=== PATIENT | male | born 1960 | race Caucasian/White ===

== ENCOUNTER 2016-03-31 11:43 | Observation (INO) | payer BC, OTHER ==
[2016-03-31] VITALS (8 sets, daily range): BP systolic 127–175; BP diastolic 70–89; PULSE 42–68; RESP 14–20; TEMP 97.6–98.4; O2SAT 96–99
[~2016-03-31] VITALS: Ht 177.8 cm; Wt 115.0 kg
[~2016-03-31 11:43] MED LIST: 1-ME1LIQ PO; ASPI81 PO; BENA40TA PO; COUM5TAB PO; GLIM1TAB PO; GLIM2TAB PO; HYDR10TA16 PO; METO50TA PO; SIMV40TA PO; WARF7.5 PO
--- NOTE | 2016-03-31 12:03 | PD ---
HPI Chief Complaint: Cardiac Complaint Time Seen by Provider: 12:03 Travel History International Travel<30 days: No Contact w/Intl Traveler<30days: No Traveled to known affect area: No History of Present Illness HPI 55-year-old male came to the emergency room with history of palpitations/ flutter on and off for past 2 weeks. The symptoms are associated with lightheadedness and feeling like he is going to pass out. He has been getting progressive shortness of breath. Some chest heaviness as well. No cough, fever. Patient had history of atrial fibrillation and had an ablation done 7 years ago. Since then he was symptom-free up until 2 weeks ago. Since this was not going away patient decided to come to the emergency room. Vital signs are stable otherwise. Patient seems anxious but not in any significant distress. PFSH Past Medical History Narrative Medical List of his past medical history as reviewed from the nursing note. Diminished Hearing: No Social History Alcohol Use: No Tobacco Use: Yes (1 PPD) Substance Use: No Allergies-Medications (Allergen,Severity, Reaction): Coded Allergies: No Known Allergies (Verified , 03/31/16) Comments No known drug allergies. Reported Meds & Prescriptions Reported Meds & Active Scripts Active Reported Vitamin D3 (Cholecalciferol) 5,000 Unit Tab 5,000 Units PO BID Fish Oil 1200 mg ([place]-3 Fatty Acids) 1 Cap Cap 1,200 Mg PO BID Ventolin Hfa 18 GM Inh (Albuterol Sulfate) 90 Mcg/Act Aer 2 Puff INH Q6H PRN Symbicort Inh (Budesonide/Formoterol Fumarate) 80-4.5 Mcg/Act Aero 2 Puff INH Q12HR Singulair (Montelukast Sodium) 10 Mg Tab 10 Mg PO HS Atorvastatin (Atorvastatin Calcium) 40 Mg Tab 40 Mg PO HS Janumet (Sitagliptin-Metformin) 50-1,000 Mg Tab 1 Tab PO BID Aspirin 325 Mg Tab 325 Mg PO DAILY Metoprolol Tartrate 25 Mg Tab 25 Mg PO BID Amlodipine-Benazepril 10-40 Mg Cap 1 Cap PO DAILY Narrative Medication List of his home medications reviewed from the nursing note. Review of Systems Except as stated in HPI: all other systems reviewed are Neg Physical Exam Narrative GENERAL: Awake, alert, obese, anxious SKIN: Warm and dry. HEAD: Atraumatic. Normocephalic. EYES: Pupils equal and round. No scleral icterus. No injection or drainage. ENT: No nasal bleeding or discharge. Mucous membranes pink and moist. NECK: Trachea midline. No JVD. CARDIOVASCULAR: Regular rate and rhythm. No murmur appreciated. RESPIRATORY: No accessory muscle use. Clear to auscultation. Breath sounds equal bilaterally. GASTROINTESTINAL: Abdomen soft, non-tender, nondistended. Hepatic and splenic margins not palpable. MUSCULOSKELETAL: No obvious deformities. No clubbing. No cyanosis. No edema. NEUROLOGICAL: Awake and alert. No obvious cranial nerve deficits. Motor grossly within normal limits. Normal speech. PSYCHIATRIC: Appropriate mood and affect; insight and judgment normal. Data Data Last Documented VS Vital Signs Date Time Temp Pulse Resp B/P Pulse Ox O2 Delivery O2 Flow Rate FiO2 03/31/16 13:09 59 16 175/72 97 Room Air 03/31/16 12:51 2 03/31/16 11:45 98.4 Orders Electrocardiogram (03/31/16 ) Basic Metabolic Panel (Bmp) (03/31/16 12:15) B-Type Natriuretic Peptide (03/31/16 12:15) Ckmb (Isoenzyme) Profile (03/31/16 12:15) Complete Blood Count With Diff (03/31/16 12:15) Magnesium (Mg) (03/31/16 12:15) Prothrombin Time / Inr (Pt) (03/31/16 12:15) Act Partial Throm Time (Ptt) (03/31/16 12:15) Troponin I (03/31/16 12:15) Chest, Single Ap (03/31/16 12:15) Ecg Monitoring (03/31/16 12:15) Bilateral Bp Monitoring (03/31/16 12:15) Iv Access Insert/Monitor (03/31/16 12:15) Oximetry (03/31/16 12:15) Oxygen Administration (03/31/16 12:15) Sodium Chloride 0.9% Flush (Ns Flush) (03/31/16 12:15) CKMB (03/31/16 12:27) CKMB% (03/31/16 12:27) Hydralazine Inj (Apresoline Inj) (03/31/16 13:45) Admit Order (Ed Use Only) (03/31/16 14:16) Labs Laboratory Tests Test 03/31/16 12:27 White Blood Count 9.6 TH/MM3 Red Blood Count 5.01 MIL/MM3 Hemoglobin 14.1 GM/DL Hematocrit 42.2 % Mean Corpuscular Volume 84.2 FL Mean Corpuscular Hemoglobin 28.2 PG Mean Corpuscular Hemoglobin 33.5 % Concent Red Cell Distribution Width 13.8 % Platelet Count 261 TH/MM3 Mean Platelet Volume 9.6 FL Neutrophils (%) (Auto) 56.6 % Lymphocytes (%) (Auto) 32.6 % Monocytes (%) (Auto) 8.4 % Eosinophils (%) (Auto) 1.4 % Basophils (%) (Auto) 1.0 % Neutrophils # (Auto) 5.4 TH/MM3 Lymphocytes # (Auto) 3.1 TH/MM3 Monocytes # (Auto) 0.8 TH/MM3 Eosinophils # (Auto) 0.1 TH/MM3 Basophils # (Auto) 0.1 TH/MM3 CBC Comment DIFF FINAL Differential Comment Prothrombin Time 10.7 SEC Prothromb Time International 1.0 RATIO Ratio Activated Partial 29.9 SEC Thromboplast Time Sodium Level 137 MEQ/L Potassium Level 4.6 MEQ/L Chloride Level 103 MEQ/L Carbon Dioxide Level 26.8 MEQ/L Anion Gap 7 MEQ/L Blood Urea Nitrogen 11 MG/DL Creatinine 0.82 MG/DL Estimat Glomerular Filtration 97 ML/MIN Rate Random Glucose 125 MG/DL Calcium Level 9.1 MG/DL Magnesium Level 1.9 MG/DL Total Creatine Kinase 163 U/L Creatine Kinase MB 0.6 NG/ML Troponin I LESS THAN 0.02 NG/ML B-Type Natriuretic Peptide 24 PG/ML MDM Medical Decision Making Medical Screen Exam Complete: Yes Emergency Medical Condition: Yes Medical Record Reviewed: Yes Interpretation(s) Twelve-lead EKG was reviewed by me. Normal sinus rhythm, left axis deviation, right bundle branch block. Heart rate of 62 bpm. Differential Diagnosis Paroxysmal atrial fibrillation/flutter, paroxysmal ventricular tachycardia, congestive heart failure Narrative Course 1:28 PM awaiting for the blood test results. Patient will require admission. 2:07 PM all the blood test results of come back and within normal limit. Awaiting for the hospitalist to call back for admission. Procedures EKG Prior to Arrival: Yes Diagnosis Primary Impression: Palpitations Additional Impressions: Chest pain Qualified Code: R07.9 - Chest pain, unspecified type Shortness of breath Admitting Information Admitting Physician Requests: Observation Nahed Alston MD Mar 31, 2016 12:03
[2016-03-31] MEDS ORDERED: JANU50TA8 PO (12:12)
[2016-03-31] MEDS ORDERED: METO25TA3 PO (12:12)
[2016-03-31] MEDS ORDERED: MONT10TA2 PO (12:12)
[2016-03-31] MEDS ORDERED: SYMB80AE INH (12:12)
[2016-03-31] MEDS ORDERED: OMEG5CAP PO (12:12)
[2016-03-31] MEDS ORDERED: ASPI325T PO (12:12)
[2016-03-31] MEDS ORDERED: CHOL50008 PO (12:12)
[2016-03-31] MEDS ORDERED: AMLO10CA3 PO (12:12)
[2016-03-31] MEDS ORDERED: VENTAER INH (12:12)
[2016-03-31] MEDS ORDERED: ATOR40TA16 PO (12:12)
[2016-03-31] MEDS ORDERED: SODIUM CHLORIDE 0.9% FLUSH 5 ML FLUSH IVF PRN (12:15)
[2016-03-31 13:05] LABS: AUTOMATED NEUTROPHIL # 5.4 TH/MM3 (1.8-7.7); BASOPHIL # 0.1 TH/MM3 (0-0.2); EOSINOPHIL # 0.1 TH/MM3 (0-0.4); EOSINOPHIL % 1.4 % (0.0-4.0); HEMATOCRIT 42.2 % (39.0-51.0); HEMO FLAGS DIFF FINAL; LYMPH % 32.6 % (9.0-44.0); LYMPHOCYTE # 3.1 TH/MM3 (1.0-4.8); MEAN CELL VOLUME 84.2 FL (80.0-100.0); MEAN CORPUSCULAR HEMOGLOBIN 28.2 PG (27.0-34.0); MEAN CORPUSCULAR HGB CONC 33.5 % (32.0-36.0); MONO % 8.4 % (0.0-8.0); NEUT % 56.6 % (16.0-70.0); PLATELET COUNT 261 TH/MM3 (150-450); RED BLOOD COUNT 5.01 MIL/MM3 (4.50-5.90); RED CELL DISTRIBUTION WIDTH 13.8 % (11.6-17.2); WHITE BLOOD COUNT 9.6 TH/MM3 (4.0-11.0)
[2016-03-31 13:09] LABS: PROTHROMBIN TIME - PATIENT 10.7 SEC (9.8-11.6)
[2016-03-31 13:13] LABS: APTT (PATIENT) 29.9 SEC (24.3-30.1)
[2016-03-31 13:29] LABS: ANION GAP 7 MEQ/L (5-15); BICARBONATE 26.8 MEQ/L (21.0-32.0); BLOOD UREA NITROGEN 11 MG/DL (7-18); CHLORIDE 103 MEQ/L (98-107); CREATINE KINASE 163 U/L (39-308); GLOMERULAR FILTRATION RATE 97 ML/MIN (>89); MAGNESIUM 1.9 MG/DL (1.5-2.5); SODIUM (NA) 137 MEQ/L (136-145)
[2016-03-31 13:30] LABS: POTASSIUM 4.6 MEQ/L (3.5-5.1)
[2016-03-31 13:43] LABS: CKMB 0.6 NG/ML (0.5-3.6)
[2016-03-31] MEDS ORDERED: hydrALAZINE HCL 20 MG/ML VIAL IV PUSH ONE (13:45)
--- NOTE | 2016-03-31 13:59 | RADRPT ---
EXAM DATE/TIME: 03/31/2016 12:38 [facility] COMPARISON: No previous studies available for comparison. INDICATIONS : Shortness of breath. MEDICAL HISTORY : None. SURGICAL HISTORY : None. ENCOUNTER: Initial ACUITY: 1 day PAIN SCORE: 0/10 LOCATION: Bilateral chest FINDINGS: A single view of the chest demonstrates the lungs to be symmetrically aerated without evidence of mas s, infiltrate or effusion. The cardiomediastinal contours are unremarkable. Osseous structures are intact. CONCLUSION: No acute disease. Arian Anand MD on March 31, 2016 at 13:57 Board Certified Radiologist. This report was verified electronically.
[2016-03-31] MEDS ORDERED: ALBUTEROL SULFATE 90 MCG/ACT HFA 8 GM INHALER INH PRN (14:45)
[2016-03-31] MEDS ORDERED: SODIUM CHLORIDE 0.9% FLUSH 5 ML FLUSH FLUSH PRN (14:45)
--- NOTE | 2016-03-31 16:19 | HHI.HP ---
[facility] Primary Care Physician Haroldo Johnson Admission Diagnosis palpitations, chest pain, shortness of breath Diagnoses: Chief Complaint: Heart palpitations, chest tightness and shortness of breath. Travel History International Travel<30 Days: No Contact w/Intl Traveler <30 Da: No Traveled to Known Affected Are: No History of Present Illness 55-year-old male with a medical history significant for atrial fibrillation status post ablation 6 years ago, hypertension, hyperlipidemia, diabetes, COPD who presented to the emergency room with complaint of intermittent heart palpitations associated with shortness of breath, chest tightness and lightheadedness. The patient reports that he is experiencing the same symptoms he had prior to his ablation. He reports he started to experience the symptoms over the past couple of weeks and they have becoming more frequent on the daily basis which prompted the emergency room visit. He reports that he follows regularly with his [employer] Dr. Malagon. EKG in the ER show sinus rhythm. Hospitalist service contacted for admission and further workup. Upon my evaluation the patient reports that he is still experiencing the symptoms, monitor shows some PVCs but rate is normal. Review of Systems Constitutional: DENIES: Fever, Chills Eyes: DENIES: Blurred vision Ears, nose, mouth, throat: DENIES: Oral lesions, Throat pain Respiratory: COMPLAINS OF: Shortness of breath, DENIES: Cough Cardiovascular: COMPLAINS OF: Chest pain, Palpitations, DENIES: Syncope, Lower Extremity Edema Gastrointestinal: DENIES: Nausea, Vomiting Genitourinary: DENIES: Dysuria Musculoskeletal: DENIES: Joint Swelling Integumentary: DENIES: Rash Neurologic: DENIES: Headache Psychiatric: DENIES: Mood changes Past Family Social History Past Medical History atrial fibrillation status post ablation 6 years ago, hypertension, hyperlipidemia, diabetes, COPD Past Surgical History Left knee surgery Sinus surgery Reported Medications Reported Meds & Active Scripts Active Reported Vitamin D3 (Cholecalciferol) 5,000 Unit Tab 5,000 Units PO BID Fish Oil 1200 mg ([place]-3 Fatty Acids) 1 Cap Cap 1,200 Mg PO BID Ventolin Hfa 18 GM Inh (Albuterol Sulfate) 90 Mcg/Act Aer 2 Puff INH Q6H PRN Symbicort Inh (Budesonide/Formoterol Fumarate) 80-4.5 Mcg/Act Aero 2 Puff INH Q12HR Singulair (Montelukast Sodium) 10 Mg Tab 10 Mg PO HS Atorvastatin (Atorvastatin Calcium) 40 Mg Tab 40 Mg PO HS Janumet (Sitagliptin-Metformin) 50-1,000 Mg Tab 1 Tab PO BID Aspirin 325 Mg Tab 325 Mg PO DAILY Metoprolol Tartrate 25 Mg Tab 25 Mg PO BID Amlodipine-Benazepril 10-40 Mg Cap 1 Cap PO DAILY Allergies: Coded Allergies: No Known Allergies (Verified , 03/31/16) Family History Both parents with heart disease and strokes. Social History Patient quit smoking cigarettes 6 years ago. Prior to that he smoked 2 pack per day for about 35 years. Rarely uses alcohol, denies illicit drugs. Physical Exam Vital Signs Vital Signs Date Time Temp Pulse Resp B/P Pulse Ox O2 Delivery O2 Flow Rate FiO2 03/31/16 14:27 61 16 139/80 99 Nasal Cannula 2 03/31/16 13:09 59 16 175/72 97 Room Air 03/31/16 12:51 97 Nasal Cannula 2 03/31/16 12:12 63 16 161/77 97 Nasal Cannula 2 03/31/16 11:45 98.4 63 14 156/89 98 Room Air Physical Exam GENERAL: This is a well-nourished, well-developed patient, in no apparent distress. SKIN: No rashes, ecchymoses or lesions. Cool and dry. HEAD: Atraumatic. Normocephalic. No temporal or scalp tenderness. EYES: Pupils equal round and reactive. Extraocular motions intact. No scleral icterus. No injection or drainage. ENT: Nose without bleeding, purulent drainage or septal hematoma. Throat without erythema, tonsillar hypertrophy or exudate. Uvula midline. Airway patent. NECK: Trachea midline. No JVD or lymphadenopathy. Supple, nontender, no meningeal signs. CARDIOVASCULAR: Regular rate and rhythm without murmurs, gallops, or rubs. RESPIRATORY: Clear to auscultation. Breath sounds equal bilaterally. No wheezes , rales, or rhonchi. GASTROINTESTINAL: Abdomen soft, non-tender, nondistended. No hepato-splenomegaly , or palpable masses. No guarding. MUSCULOSKELETAL: Extremities without clubbing, cyanosis, or edema. No joint tenderness, effusion, or edema noted. No calf tenderness. Negative Homans sign bilaterally. NEUROLOGICAL: Awake and alert. Cranial nerves II through XII intact. Motor and sensory grossly within normal limits. Five out of 5 muscle strength in all muscle groups. Normal speech. Laboratory Laboratory Tests Test 03/31/16 12:27 White Blood Count 9.6 Red Blood Count 5.01 Hemoglobin 14.1 Hematocrit 42.2 Mean Corpuscular Volume 84.2 Mean Corpuscular Hemoglobin 28.2 Mean Corpuscular Hemoglobin 33.5 Concent Red Cell Distribution Width 13.8 Platelet Count 261 Mean Platelet Volume 9.6 Neutrophils (%) (Auto) 56.6 Lymphocytes (%) (Auto) 32.6 Monocytes (%) (Auto) 8.4 Eosinophils (%) (Auto) 1.4 Basophils (%) (Auto) 1.0 Neutrophils # (Auto) 5.4 Lymphocytes # (Auto) 3.1 Monocytes # (Auto) 0.8 Eosinophils # (Auto) 0.1 Basophils # (Auto) 0.1 CBC Comment DIFF FINAL Differential Comment Prothrombin Time 10.7 Prothromb Time International 1.0 Ratio Activated Partial 29.9 Thromboplast Time Sodium Level 137 Potassium Level 4.6 Chloride Level 103 Carbon Dioxide Level 26.8 Anion Gap 7 Blood Urea Nitrogen 11 Creatinine 0.82 Estimat Glomerular Filtration 97 Rate Random Glucose 125 Calcium Level 9.1 Magnesium Level 1.9 Total Creatine Kinase 163 Creatine Kinase MB 0.6 Troponin I LESS THAN 0.02 B-Type Natriuretic Peptide 24 Result Diagram: 03/31/16 1227 03/31/16 1227 Imaging Last Impressions Chest X-Ray 03/31/16 1215 Signed Impressions: Service Date/Time: Thursday, March 31, 2016 12:38 - CONCLUSION: No acute disease. Arian Anand MD Assessment and Plan Problem List: (1) Palpitations ICD Code: R00.2 Status: Acute (2) Chest pain ICD Code: R07.9 Status: Acute (3) Shortness of breath ICD Code: R06.02 Status: Acute (4) Diabetes ICD Code: E11.9 Status: Acute (5) Hyperlipidemia ICD Code: E78.5 Status: Acute (6) Hypertension ICD Code: I10 Status: Acute Assessment and Plan 55-year-old male with: Palpitations associated chest pain, lightheadedness, and shortness of breath: The patient has a history of A. fib status post ablation. EKG shows a controlled rate and occasional PVCs are seen on the monitor. It is unclear if he is having episodes of paroxysmal A. fib. - Admitted for observation and continuous telemetry monitoring. Holter monitor. 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 Check TSH and mag. History of A. fib: Status post ablation as above. Rate control. - Continue metoprolol and aspirin Diabetes: Continue home dose Janumet Hyperlipidemia: Continue atorvastatin. COPD: Not in exacerbation. Continue Symbicort, albuterol and Montelukast. GI prophylaxis: Stool softener PRN constipation. DVT PPx: Heparin Discussed Condition With Dr. Alston. Problem Qualifiers (1) Chest pain: Qualified Code: R07.9 - Chest pain, unspecified type Vitaliy Cabezas MD Mar 31, 2016 16:19
[2016-03-31] MEDS: HEPARIN SODIUM - SQ 10,000 UNITS/ML VIAL SQ SCH (17:31)
[2016-03-31] MEDS: metFORMIN HCL 500 MG TAB PO SCH (18:10)
[2016-03-31 19:55] LABS: MAGNESIUM 1.8 MG/DL (1.5-2.5)
[2016-03-31 20:12] LABS: CREATINE KINASE 92 U/L (39-308)
[2016-03-31] MEDS: SODIUM CHLORIDE 0.9% FLUSH 5 ML FLUSH FLUSH SCH (20:55)
[2016-03-31] MEDS: BUDESONIDE-FORMOTEROL 80/4.5 MCG INHALER INH SCH (20:55)
[2016-03-31] MEDS: MONTELUKAST SODIUM 10 MG TAB PO SCH (20:56)
[2016-03-31] MEDS: METOPROLOL TARTRATE 25 MG TAB PO SCH (20:56)
[2016-03-31] MEDS: CHOLECALCIFEROL (VIT D3) 5000 UNIT CAP PO SCH (20:56)
[2016-03-31] MEDS ORDERED: NON-FORMULARY DRUG (Omega-3 Fatty Acids (Fish Oil 1200 mg) 1,200 MG) PO SCH (21:00)
[2016-03-31] MEDS ORDERED: ATORVASTATIN 40 MG TAB PO SCH (21:00)
[2016-04-01] VITALS (8 sets, daily range): BP systolic 110–140; BP diastolic 67–78; PULSE 62–82; RESP 18–20; TEMP 97.4–98.1; O2SAT 93–96
[2016-04-01 01:09] LABS: CREATINE KINASE 95 U/L (39-308)
[2016-04-01] MEDS: HEPARIN SODIUM - SQ 10,000 UNITS/ML VIAL SQ SCH ×2 (04:42→16:15)
[2016-04-01] MEDS ORDERED: ASPIRIN 325 MG TAB PO SCH (09:00)
[2016-04-01] MEDS ORDERED: LISINOPRIL 20 MG TAB PO SCH (09:00)
[2016-04-01] MEDS ORDERED: NON-FORMULARY DRUG (Amlodipine-Benazepril 1 CAP) PO SCH (09:00)
[2016-04-01] MEDS: BUDESONIDE-FORMOTEROL 80/4.5 MCG INHALER INH SCH (09:02)
[2016-04-01] MEDS: METOPROLOL TARTRATE 25 MG TAB PO SCH (09:03)
[2016-04-01] MEDS: metFORMIN HCL 500 MG TAB PO SCH ×2 (09:03→18:07)
[2016-04-01] MEDS: CHOLECALCIFEROL (VIT D3) 5000 UNIT CAP PO SCH (09:03)
[2016-04-01] MEDS: SODIUM CHLORIDE 0.9% FLUSH 5 ML FLUSH FLUSH SCH (09:04)
[2016-04-01] MEDS ORDERED: PNEUMOCOCCAL POLYVALENT INJ 25 MCG/0.5 ML SYR IM ONE (10:00)
[2016-04-01] MEDS ORDERED: INFLUENZA VIRUS VACCINE (QUADRIVALENT) 0.5 ML SYR IM ONE (10:00)
--- NOTE | 2016-04-01 10:43 | PD.PN.STU ---
Subjective Remarks Pt reports he still feels these momentary palpitations that last only a few seconds. He has been keeping track of them overnight. He describes a feeling of discomfort when these occur, they are unrelated to exertion. They seem to be happening a few times each hour, again lasting only a few seconds each time. He denies chest pain, increasing shortness of breath, or dizziness. Objective Vitals Vital Signs Date Time Temp Pulse Resp B/P Pulse Ox O2 Delivery O2 Flow Rate FiO2 04/01/16 07:41 97.4 72 18 140/72 95 04/01/16 04:24 97.9 68 20 110/67 96 04/01/16 01:02 62 04/01/16 00:30 98.1 68 20 133/73 94 03/31/16 19:58 97.7 68 20 143/76 97 03/31/16 18:28 66 03/31/16 17:33 42 03/31/16 16:00 97.6 61 18 127/70 96 03/31/16 14:27 61 16 139/80 99 Nasal Cannula 2 03/31/16 13:09 59 16 175/72 97 Room Air 03/31/16 12:51 97 Nasal Cannula 2 03/31/16 12:12 63 16 161/77 97 Nasal Cannula 2 03/31/16 11:45 98.4 63 14 156/89 98 Room Air Result Diagram: 03/31/16 1227 03/31/16 1227 Other Results Laboratory Tests Test 03/31/16 03/31/16 04/01/16 12:27 18:39 00:13 White Blood Count 9.6 TH/MM3 Red Blood Count 5.01 MIL/MM3 Hemoglobin 14.1 GM/DL Hematocrit 42.2 % Mean Corpuscular Volume 84.2 FL Mean Corpuscular Hemoglobin 28.2 PG Mean Corpuscular Hemoglobin 33.5 % Concent Red Cell Distribution Width 13.8 % Platelet Count 261 TH/MM3 Mean Platelet Volume 9.6 FL Neutrophils (%) (Auto) 56.6 % Lymphocytes (%) (Auto) 32.6 % Monocytes (%) (Auto) 8.4 % Eosinophils (%) (Auto) 1.4 % Basophils (%) (Auto) 1.0 % Neutrophils # (Auto) 5.4 TH/MM3 Lymphocytes # (Auto) 3.1 TH/MM3 Monocytes # (Auto) 0.8 TH/MM3 Eosinophils # (Auto) 0.1 TH/MM3 Basophils # (Auto) 0.1 TH/MM3 CBC Comment DIFF FINAL Differential Comment Prothrombin Time 10.7 SEC Prothromb Time International 1.0 RATIO Ratio Activated Partial 29.9 SEC Thromboplast Time Sodium Level 137 MEQ/L Potassium Level 4.6 MEQ/L Chloride Level 103 MEQ/L Carbon Dioxide Level 26.8 MEQ/L Anion Gap 7 MEQ/L Blood Urea Nitrogen 11 MG/DL Creatinine 0.82 MG/DL Estimat Glomerular Filtration 97 ML/MIN Rate Random Glucose 125 MG/DL Calcium Level 9.1 MG/DL Magnesium Level 1.9 MG/DL 1.8 MG/DL Total Creatine Kinase 163 U/L 92 U/L 95 U/L Creatine Kinase MB 0.6 NG/ML Troponin I LESS THAN 0.02 LESS THAN 0.02 LESS THAN 0.02 NG/ML NG/ML NG/ML B-Type Natriuretic Peptide 24 PG/ML Thyroid Stimulating Hormone 1.570 uIU/ML 3rd Gen Imaging Last 24 hours Impressions Chest X-Ray 03/31/16 1215 Signed Impressions: Service Date/Time: Thursday, March 31, 2016 12:38 - CONCLUSION: No acute disease. Arian Anand MD Objective Remarks GENERAL: Well-nourished, well-developed patient, sitting upright eating breakfast, appears comfortable, pleasant and conversant SKIN: Warm and dry. HEAD: Normocephalic. EYES: No scleral icterus. No injection or drainage. NECK: Supple, trachea midline. No JVD or lymphadenopathy. CARDIOVASCULAR: Regular rate and rhythm without murmurs, gallops, or rubs. RESPIRATORY: Breath sounds equal bilaterally. No accessory muscle use. GASTROINTESTINAL: Abdomen soft, non-tender, nondistended. EXTREMITIES: No cyanosis, or edema. NEUROLOGICAL: Awake, alert, and oriented x 3. Non-focal. Medications and IVs Administered Medications Medications (Trade) Dose Ordered Sig/Anjali Route PRN Reason Start Time Stop Time Status Last Admin Dose Admin Aspirin (Aspirin) 325 mg DAILY PO 04/01/16 09:00 04/01/16 09:03 Atorvastatin Calcium (Lipitor) 40 mg HS PO 03/31/16 21:00 03/31/16 20:55 Budesonide/ Formoterol Fumarate (Symbicort 80-4.5 Mcg Inh) 2 puff Q12HR INH 03/31/16 21:00 04/01/16 09:02 Cholecalciferol (Vitamin D3) 5,000 units BID PO 03/31/16 21:00 04/01/16 09:03 Montelukast Sodium (Singulair) 10 mg HS PO 03/31/16 21:00 03/31/16 20:56 IV Flush (NS Flush) 2 ml BID FLUSH 03/31/16 21:00 04/01/16 09:04 Heparin Sodium (Porcine) (Heparin Inj) 5,000 units Q12H SQ 03/31/16 16:15 04/01/16 04:42 Metoprolol Tartrate (Lopressor) 25 mg BID PO 03/31/16 21:00 04/01/16 09:03 Amlodipine Besylate (Norvasc) 10 mg DAILY PO 04/01/16 09:00 04/01/16 09:03 Lisinopril (Prinivil) 40 mg DAILY PO 04/01/16 09:00 04/01/16 09:03 Sitagliptin Phosphate (Januvia) 50 mg BIDPC PO 03/31/16 18:00 04/01/16 09:03 Metformin HCl (Glucophage) 1,000 mg BIDPC PO 03/31/16 18:00 04/01/16 09:03 A/P Assessment and Plan 55 yo M w/palpitations and a hx of AF, Diabetes, HTN, HLD, COPD - Atrial Fibrillation s/p ablation - EKG's in the ED have shown sinus rhythm, unclear if these brief episodes are atrial fibrillation or can be better explained by another etiology ( possibly PVC's) - Currently on holter monitor - Echo ordered - Cardiology consulted - Continue home regimen (metoprolol, amlodipine, lisinopril) - Diabetes - Continue home medications (metformin, januvia) - COPD - Continue symbicort Q12h - Influenza, pneumococcal vaccines administered - Hyperlipidemia - Continue atorvastatin - Ppx: Heparin 5,000 U Q12h Stephany Guerrero Apr 01, 2016 10:43
--- NOTE | 2016-04-01 14:18 | HHI.PR ---
Subjective Remarks Patient again is reporting multiple episodes of heart palpitations per hour with associated shortness of breath and lightheadedness. Telemetry reviewed, could not correlate his symptoms with the telemetry findings. There were a couple episodes of bradycardia in the mid 40s and mostly artifacts. I could not appreciate a tachyarrhythmia. Objective Vitals Vital Signs Date Time Temp Pulse Resp B/P Pulse Ox O2 Delivery O2 Flow Rate FiO2 04/01/16 11:19 97.8 69 18 113/67 95 04/01/16 11:00 67 04/01/16 07:41 97.4 72 18 140/72 95 04/01/16 04:24 97.9 68 20 110/67 96 04/01/16 01:02 62 04/01/16 00:30 98.1 68 20 133/73 94 03/31/16 19:58 97.7 68 20 143/76 97 03/31/16 18:28 66 03/31/16 17:33 42 03/31/16 16:00 97.6 61 18 127/70 96 03/31/16 14:27 61 16 139/80 99 Nasal Cannula 2 Result Diagram: 03/31/16 1227 03/31/16 1227 Imaging Last Impressions Chest X-Ray 03/31/16 1215 Signed Impressions: Service Date/Time: Thursday, March 31, 2016 12:38 - CONCLUSION: No acute disease. Arian Anand MD Objective Remarks GENERAL: This is a well-nourished, well-developed patient, in no apparent distress. CARDIOVASCULAR: Normal rate and regular rhythm without murmurs, gallops, or rubs. RESPIRATORY: Good respiratory efforts. Breath sounds equal and clear to auscultation bilaterally. GASTROINTESTINAL: Abdomen soft, non-tender, non-distended. Normal active bowel sounds MUSCULOSKELETAL: Extremities without cyanosis, or edema. NEURO: Alert & Oriented x4 to person, place, time, situation. Moves all ext x4 PSYCH: Appropriate mood and affect. A/P Problem List: (1) Palpitations ICD Code: R00.2 Status: Acute (2) Chest pain ICD Code: R07.9 Status: Acute (3) Shortness of breath ICD Code: R06.02 Status: Acute (4) Diabetes ICD Code: E11.9 Status: Acute (5) Hyperlipidemia ICD Code: E78.5 Status: Acute (6) Hypertension ICD Code: I10 Status: Acute Assessment and Plan 55-year-old male with: Palpitations with associated chest pain, lightheadedness, and shortness of breath on presentation: The patient has a history of A. fib status post ablation. EKG shows a controlled rate and occasional PVCs are seen on the monitor. Couple episodes of bradycardia. The patient's symptoms so far does not correlate with what I observed on the monitor but he continues to report heart palpitations and lightheadedness. - Given his heart history, I will defer to the patient's Nylon Winder - Obtain 2-D echo - Serial cardiac enzymes, EKG, TSH and electrolytes unremarkable. History of A. fib: Status post ablation as above. Rate control. - Continue metoprolol and aspirin Diabetes: Continue home dose Janumet Hyperlipidemia: Continue atorvastatin. COPD: Not in exacerbation. Continue Symbicort, albuterol and Montelukast. GI prophylaxis: Stool softener PRN constipation. DVT PPx: Heparin Discharge Planning Patient can be discharged today after Nylon Winder evaluation if no further inpatient workup is indicated. He may need prolonged outpatient cardiac monitoring. Problem Qualifiers (1) Chest pain: Qualified Code: R07.9 - Chest pain, unspecified type Vitaliy Cabezas MD Apr 01, 2016 14:18
[2016-04-01] MEDS: MONTELUKAST SODIUM 10 MG TAB PO SCH (18:07)
--- NOTE | 2016-04-01 19:02 | EC ---
Study Study Date:04/01/2016 STUDY CONCLUSIONS SUMMARY LEFT VENTRICLE: The cavity size was normal. Wall thickness was normal. Systolic function was vigorous. The estimated ejection fraction was in the range of 65% to 70%. Wall motion was normal; there were no regional wall motion abnormalities. If LV function is below 40, please consider prescribing an ACEI or ARB or document rationale for non-use. PROCEDURE DATA STUDY STATUS: Elective. Procedure: Transthoracic echocardiography. Image quality was good. Scanning was performed from the parasternal, apical, and subcostal acoustic windows. Study completion: The patient tolerated the procedure well. Transthoracic echocardiography. M-mode, complete 2D, complete spectral Doppler, and color Doppler. Patient status: Inpatient. CARDIAC ANATOMY LEFT VENTRICLE: The cavity size was normal. Wall thickness was normal. Systolic function was vigorous. The estimated ejection fraction was in the range of 65% to 70%. Wall motion was normal; there were no regional wall motion abnormalities. AORTIC VALVE: Trileaflet; normal thickness leaflets. Doppler: Transvalvular velocity was within the normal range. There was no stenosis. No regurgitation. AORTA: Aortic root: The aortic root was normal in size. MITRAL VALVE: Structurally normal valve. Doppler: Transvalvular velocity was within the normal range. There was no evidence for stenosis. No regurgitation. Peak gradient: 3mm Hg (D). LEFT ATRIUM: The atrium was normal in size. RIGHT VENTRICLE: The cavity size was normal. Wall thickness was normal. PULMONIC VALVE: Doppler: Transvalvular velocity was within the normal range. There was no evidence for stenosis. No regurgitation. TRICUSPID VALVE: Structurally normal valve. Doppler: Transvalvular velocity was within the normal range. No regurgitation. PULMONARY ARTERY: The main pulmonary artery was normal-sized. Systolic pressure was within the normal range. RIGHT ATRIUM: The atrium was normal in size. PERICARDIUM: There was no pericardial effusion. SYSTEMIC VEINS: Inferior vena cava: Not visualized. BASIC MEASUREMENTS ADULT NORMAL Left ventricle LV internal dimension, ED, chordal level, 43.4 mm 43-52 PLAX LV posterior wall thickness, ED 8.38 mm IVS/LVPW ratio, ED 1.13 <1.3 Ventricular septum Septal thickness, ED 9.44 mm Left atrium Anterior-posterior dimension 42 mm Right ventricle RV internal dimension, ED, PLAX 20.1 mm 19-38 DOPPLER MEASUREMENTS ADULT NORMAL Main pulmonary artery Pressure, S 20 mm Hg =30 Mitral valve Peak E-wave velocity 91.3 cm/s Peak A-wave velocity 51.3 cm/s Peak gradient, D 3 mm Hg Peak E/A ratio 1.8 Tricuspid valve Regurgitant peak velocity 159 cm/s Peak RV-RA gradient, S 10 mm Hg Maximal regurgitant velocity 159 cm/s Systemic veins Estimated CVP 10 mm Hg Right ventricle RV pressure, S 20 mm Hg <30 LEGEND: Mean values are shown as u=mean value. Asterisk (*) zabala values outside specified normal range. Prepared and signed by Fernando Fleming [id number]
--- NOTE | 2016-04-01 20:17 | MB ---
cc: EDIN LOCKETT D.O., ALAN S. M.D. WILSON, VANCE E. M.D. DATE OF CONSULTATION 04/01/2016 REASON FOR CONSULTATION Evaluation of palpitations. HISTORY OF PRESENT ILLNESS Maximus Fermin is a 55-year-old man who is followed by Dr. Malagon. He has a history of arrhythmias. He had an atrial fib ablation November 20, 2010. His last Holter was June 02, 2014 showing sinus rhythm with occasional PACs and runs up to 5 beats but nothing longer than that. He has been on metoprolol 25 mg p.o. b.i.d. He has one cup of coffee every morning. The day of admission he was working out in the yard, he thinks he overworked himself. He got lightheaded and was having palpitations. It actually got to the point where he was dizzy. Note that this was not long after he had his coffee. He came into the ER and got put into the clinical decision unit. He has been monitored here now over 24 hours. He has been noted to be in sinus rhythm throughout the entire period. There have been no episodes of a fib. He has however have PACs and I see some strips of PACs with non compensatory pauses. He has had nothing as severe as what he had at home. Denies any anginal type pain. He had a cardiac catheterization in [place] in July of 2012 that was normal, but I do not have the actual cath report in the office records. He is having no other cardiac symptomatology. MEDICATIONS His medications include: 1. Amlodipine / Benazepril 10-40 daily. 2. Aspirin 325 daily. 3. Atorvastatin 40 mg daily. 4. Cinnamon. 5. Fish oil. 6. Inhalers. 7. Janumet milligrams twice a day. 8. Metoprolol 25 milligrams twice a day. 9. Montelukast 10 milligrams daily. 10. Symbicort two puffs twice a day. 11. Temazepam as needed. 12. Ventolin inhaler two puffs as needed. 13. Vitamin D. PAST MEDICAL HISTORY Includes: 1. Sleep apnea. 2. Paroxysmal atrial fibrillation status post ablation November 2010 with no proven recurrences. 3. Normal coronary arteries on a catheter from July of 2012 performed for chest pain. 4. COPD. 5. Type 2 diabetes mellitus. 6. Reflux esophagitis. 7. Hyperlipidemia. 8. Hypertension. 9. Obesity. 10. Polyneuropathy. 11. Incomplete right bundle branch block. PAST SURGICAL HISTORY Includes: 1. His cardiac catheterization. 2. His atrial fibrillation ablation. 3. Left knee surgery. SOCIAL HISTORY He is a trash truck driver. He smoked from age 14 to age 49, two to three packs a day. PHYSICAL EXAMINATION GENERAL: Shows an obese, pleasant white male who does not appear to be in acute distress. VITAL SIGNS: Charted, basically he has been normotensive with normal heart rate. HEENT: Examination is unremarkable. NECK: Reveals no JVD. No bruits. CHEST: Clear to auscultation. CARDIOVASCULAR: Normal first and second heart sounds. Regular in rate and rhythm. There are no murmurs or gallops. ABDOMEN: Soft and nontender. No masses or organomegaly. EXTREMITIES: No clubbing, cyanosis or edema. Peripheral pulses are intact. EKG here shows sinus rhythm with incomplete right bundle-branch block. Telemetry strips show only PACs. LABORATORY Hematocrit is normal. Troponin times three is normal. Creatinine is 0.82 that is normal. IMAGING Chest x-ray shows no acute disease. IMPRESSION History of atrial fibrillation ablation, chronic palpitations nothing identified here but PACs. Of note there may be some connection with his coffee in the morning and I have asked him to discontinue that. No evidence for an myocardial infarction. He does not have typical ischemia. I think he is stable to be discharged home and followed up in the office with Dr. Malagon. Some consideration could be given to a [employer] type monitor or something else to catch more symptomatic type episodes to see if there is anything besides PACs that he is having but nothing appears to be more significant than PACs at this point. Thank you for asking me to see him. MD GABRIELE Pacheco/KELLY /7:24 PM /7:46 PM
--- NOTE | 2016-04-01 20:26 | EKG ---
Date Performed: 03/31/2016 Time Performed: 17:54:49 PTAGE: 55 years EKG: Sinus rhythm RIGHT BUNDLE BRANCH BLOCK ABNORMAL ECG PREVIOUS TRACING : 03/31/2016 12.08 Compared to prior tracing no significant change DOCTOR: Rene Amaro Interpretating Date/Time 04/01/2016 20:25:43
--- NOTE | 2016-04-01 20:47 | EKG ---
Date Performed: 03/31/2016 Time Performed: 12:08:02 PTAGE: 55 years EKG: Sinus rhythm INCOMPLETE RIGHT BUNDLE BRANCH BLOCK BORDERLINE ECG PREVIOUS TRACING : 11/21/2010 06.00 Compared to prior tracing no significant change DOCTOR: Rene Amaro Interpretating Date/Time 04/01/2016 20:46:24
--- NOTE | 2016-04-01 20:59 | HHI.PR ---
Addendum to Inpatient Note Addendum Reason: Additional Documentation Additional Information Discussed with Dr. Cabezas regarding discharge. Patient has been cleared by cardiology and Dr. Cabezas approved discharge of patient. He has instructed patient to follow up with PCP and cardiology in 1 week. Patient is Stable Heart healthy diet Resume activities as tolerated FU PCP and cardiology in 1 week Brenda Madden Apr 01, 2016 20:59
--- NOTE | 2016-04-02 21:30 | HM ---
Date Performed: 03/31/2016 Time Performed: 18:31:00 HOOKUP DATE: 03/31/16 06:31:00 PM Tue ANALYSIS START TIME: 03/31/2016 6:36:00 PM ANALYSIS END TIME: 04/01/2016 6:40:00 PM PATIENT AGE: 55 PATIENT HEIGHT: 70 PATIENT WEIGHT: 253 DRUG LIST PATIENT DIAGNOSIS: PALPS CP SOB TEST NARRATIVE: The patient's average heart rate was 68 BPM. No episodes of tachycardia wer e noted. No episodes of bradycardia were noted. No pauses exceeding 2.0 seconds were noted. 1454 ventricular ectopics, which represented 1% of the total beat count, were noted. The highest linwood tricular ectopic frequency occurred from 03:00 AM to 04:00 AM Wed. During this time 150 VE(s) occurr ed. Ventricular ectopics were observed as 1454 isolated beat(s) only. No couplets or runs were note d. 103 supraventricular ectopics, which represented < 1% of the total beat count, were noted. Th e highest supraventricular ectopic frequency occurred from 06:00 PM to 07:00 PM Wed. During this obed e 51 SVE(s) occurred. No episodes of ST depression (defined as -1.0 mm or more) were noted in polly nnel 1. No episodes of ST depression (defined as -1.0 mm or more) were noted in channel 2. No episo merry of ST depression (defined as -1.0 mm or more) were noted in channel 3. TEST INTERPRETATION: Beign Holter monitor Signed by : Job Smith
== END 2016-04-01 23:12 | disposition home or self-care (01) ==
LOC: NEPA 11:43 → NEDA 14:18 → NEPHCDU 16:12
PROVIDERS: ADMIT Internal Medicine; ATTEND Internal Medicine
DX: R00.2 Palpitations (principal); R07.9 Chest pain, unspecified; R06.02 Shortness of breath; E11.9 Type 2 diabetes mellitus without complications; E78.5 Hyperlipidemia, unspecified; I10 Essential (primary) hypertension; R42 Dizziness and giddiness; F17.210 Nicotine dependence, cigarettes, uncomplicated; Z79.899 Other long term (current) drug therapy; I45.10 Unspecified right bundle-branch block; J44.9 Chronic obstructive pulmonary disease, unspecified; I48.0 Paroxysmal atrial fibrillation; Z23 Encounter for immunization; Z79.84 Long term (current) use of oral hypoglycemic drugs
CPT/HCPCS: 71010; 80048; 82550; 82552; 83735; 83880; 84443; 84484; 85025; 85610; 85730; 90686; 90732; 93005; 93225; 93226; 93306; 99285; G0378; J1644; Q2038

== ENCOUNTER 2016-07-10 10:24 | Day surgery (SDC) | payer BC ==
[~2016-07-10 10:24] MED LIST changes: -1-ME1LIQ PO; +AMLO10CA3 PO; +ASPI325T PO; -ASPI81 PO; +ATOR40TA16 PO; -BENA40TA PO; +CHOL50008 PO; -COUM5TAB PO; -GLIM1TAB PO; -GLIM2TAB PO; -HYDR10TA16 PO; +JANU50TA8 PO; +METO25TA3 PO; -METO50TA PO; +MONT10TA2 PO; +OMEG5CAP PO; -SIMV40TA PO; +SYMB80AE INH; +VENTAER INH; -WARF7.5 PO
[2016-07-10] MEDS ORDERED: NS 1000 ML IV SCH (11:00)
[2016-07-10] MEDS ORDERED: CINN500C PO (11:08)
[2016-07-10] MEDS ORDERED: IPRASOL INH (11:08)
[2016-07-10] MEDS ORDERED: TEMA15CA PO (11:08)
[2016-07-10] MEDS ORDERED: MUPIROCIN 2% OINT 1 APPLIC/GM SYR NASAL SCH (11:15)
[2016-07-10] MEDS ORDERED: MIDAZOLAM HCL 5 MG/5 ML VIAL ONE (12:31)
[2016-07-10] MEDS: CHLORHEXIDINE GLUCONATE 2 % 1 PACK (2 CLOTHS) TOPICAL SCH ×2 (12:55→13:13)
[2016-07-10] MEDS: POVIDONE IODINE 5% (ANTISEPSIS KIT) 4 APPLICATIONS EACH NARE SCH ×2 (12:55→13:12)
[2016-07-10] MEDS: ceFAZolin 2 GM PREMIX 50 ML IV SCH ×2 (12:57→13:12)
--- NOTE | 2016-07-10 13:27 | MA ---
cc: NOLBERTO STOKES MD, ALAN S. M.D. Corrected Copy: 07/13/16 DATE 07/10/2016 PREPROCEDURE DIAGNOSIS Questionable atrial fibrillation of an uncertain burden POSTPROCEDURE DIAGNOSIS Successful loop recorder insertion. PROCEDURE PERFORMED 1. 15 minutes moderate IV sedation. 2. Loop recorder insertion. DESCRIPTION OF PROCEDURE The patient was brought to the DOC unit in the postabsorptive state after informed consent was obtained. 2 mg of Versed and 15 mcg of fentanyl was given for a moderate IV sedation. Next, a [employer] LINQ loop recorder was inserted subcutaneously to the left chest. The patient tolerated the procedure well without any apparent complications. Initial R-wave was 0.30 mV. Tachybrady pause and atrial fibrillation detection was enabled. The serial number was #[id number]. MD VESTA Davison/ASHANTI /1:11 PM /10:25 AM
--- NOTE | 2016-07-10 13:37 | MA ---
cc: NOLBERTO STOKES MD ADDENDUM DATE 07/10/2016 CORRECTION TO PREVIOUS DICTATION The serial number for the new Reveal device is #[id number]. The initial R-wave value is 0.30 mV. MD VESTA Davison/ASHANTI /1:13 PM /1:28 PM
== END 2016-07-10 14:47 | disposition home or self-care (01) ==
LOC: HDIC 10:24 → HDOC 10:24
PROVIDERS: ATTEND Nuclear Medicine Nuclear Cardiology
DX: I48.2 Chronic atrial fibrillation (principal); I10 Essential (primary) hypertension; J44.9 Chronic obstructive pulmonary disease, unspecified; E11.9 Type 2 diabetes mellitus without complications
CPT/HCPCS: 33282; C1764; J0690; J2250; J3010